=== PATIENT | female | born 1985 | race Caucasian/White ===

== ENCOUNTER 2023-04-08 00:09 | Emergency (ER) | payer OTHER ==
[~2023-04-08] VITALS: Ht 167.6 cm; Wt 83.2 kg
[2023-04-08 00:15] VITALS: BP 133/80; PULSE 97; RESP 24; O2SAT 100
[2023-04-08] MEDS ORDERED: DexAMETHasone SOD PHOS 10MG/1ML VIAL INJ IM ONE (00:30)
[2023-04-08] MEDS ORDERED: EPINEPHrine HCL 1 MG/1 ML AMP SC ONE (00:30)
== END 2023-04-08 04:36 | disposition home or self-care (01) ==
LOC: ER 00:09
DX: H10.12 Acute atopic conjunctivitis, left eye (principal); J31.0 Chronic rhinitis; Z86.2 Personal history of diseases of the blood and blood-forming organs and certain disorders involving the immune mechanism
CPT/HCPCS: 96372; 99284; J0171; J1100